=== PATIENT | female | born 1935 | race Caucasian/White ===

== ENCOUNTER 2018-04-15 10:12 | Emergency (ER) | payer MEDICARE, MEDICAID ==
[~2018-04-15] VITALS: Ht 152.4 cm; Wt 42.4 kg
[2018-04-15 10:15] VITALS: Ht 152.4 cm; Wt 42.4 kg
[2018-04-15 10:35] LABS: BASOPHIL % 0.3 % (0-2); PLATELET COUNT 239 x10^3mcL (130-400); RED CELL DISTRIBUTION WIDTH 12.1 % (11.5-14.5)
[2018-04-15 10:54] LABS: CALCIUM 8.5 mg/dL (8.5-10.1); CARBON DIOXIDE 27.2 mmol/L (21-32); CHLORIDE SERUM 106 mmol/L (98-107); CREATININE SERUM 1.2 mg/dL (0.6-1.0); GLUCOSE SERUM 137 mg/dL (74-106); SODIUM SERUM 139 mmol/L (136-145)
[2018-04-15 10:58] LABS: ALKALINE PHOSPHATASE 102 U/L (46-116); ALT/SGPT 17 U/L (14-59); AST/SGOT 19 U/L (15-37); BILIRUBIN TOTAL 0.47 mg/dL (0.20-1.00); TOTAL PROTEIN, SERUM 6.8 g/dL (6.4-8.2)
[2018-04-15 11:01] LABS: ALBUMIN 3.3 g/dL (3.4-5.0)
[2018-04-15 13:30] VITALS: BP 141/86
== END 2018-04-15 14:30 | disposition left against medical advice (07) ==
LOC: ED 10:12
DX: R42 Dizziness and giddiness (principal); R07.89 Other chest pain
CPT/HCPCS: 36415; 83880; J8597; Q0092